=== PATIENT | male | born 1970 | race American Indian/Alaskan Native ===

== ENCOUNTER 2019-09-25 11:03 | Emergency (ER) | payer BC ==
[2019-09-25] MEDS ORDERED: ASPIRIN 325 MG TAB PO ONE (11:53)
--- NOTE | 2019-09-25 11:54 | Event Note ---
ED Screening Note Date of service: 09/25/19 Time: 11:51 ED Screening Note: This is a 48 y.o. M. that presents to the ER with chest pain for 2 days. Reports pain on left side of chest, dull, constant, and worse with movement. PM of [facility] PCP Dr. Nichole This initial assessment/diagnostic orders/clinical plan/treatment(s) is/are subject to change based on patients health status, clinical progression and re- assessment by fellow clinical providers in the ED. Further treatment and workup at subsequent clinical providers discretion. Patient/guardian urged not to elope from the ED as their condition may be serious if not clinically assessed and managed. Initial orders include: Labs, ekg, & CXR
--- NOTE | 2019-09-25 12:14 | XRay Report ---
CHEST 1 VIEW 09/25/2019 11:53 AM INDICATION / CLINICAL INFORMATION: Chest Pain. COMPARISON: None available. FINDINGS: SUPPORT DEVICES: None. HEART / MEDIASTINUM: No significant abnormality. LUNGS / PLEURA: No significant pulmonary or pleural abnormality. No pneumothorax. ADDITIONAL FINDINGS: No significant additional findings. IMPRESSION: 1. No acute findings. Signer Name: Terrance Malone MD Signed: 09/25/2019 12:09 PM Workstation Name: [id number]
[2019-09-25 13:18] LABS: BUN/Creatinine Ratio 10; Blood Urea Nitrogen 9 mg/dL (9-20); Calcium 9.2 mg/dL (8.4-10.2); Hemolysis Index 54
--- NOTE | 2019-09-25 13:21 | Emergency Department Report ---
ED Chest Pain HPI - General Chief Complaint: Chest Pain Stated Complaint: CHEST PAIN Time Seen by Provider: 09/25/19 11:51 Source: patient Mode of arrival: Ambulatory Limitations: No Limitations - History of Present Illness Initial Comments: Patient is a 48-year-old male presents emergency room with complaints of left- sided chest pain that began 2 days ago. He describes the pain as an intermittent aching sensation. He states the pain is worse with movement. He states that his pain has improved over the last couple days. He states that 3 days ago he was doing heavy lifting and increased his weights. Denies any nausea, vomiting, fever, shortness of breath, leg swelling. He states his only past medical history is hyperlipidemia. He denies any allergies medications. He denies any cardiac history or family cardiac history. Severity scale (0 -10): 4 - Related Data Previous Rx's Medication Instructions Recorded Last Taken Type Cyclobenzaprine [Flexeril] 10 mg PO QHS PRN #10 tablet 09/25/19 Unknown Rx Naproxen [EC-Naproxen] 500 mg PO BID PRN #14 tablet. 09/25/19 Unknown Rx Allergies Allergy/AdvReac Type Severity Reaction Status Date / Time No Known Allergies Allergy Unverified 09/25/19 11:12 Heart Score - HEART Score History: Slightly suspicious EKG: Normal Age: 45-65 Risk factors: 1-2 risk factors Troponin: < normal limit HEART Score: 2 ED Review of Systems ROS: Stated complaint: CHEST PAIN Other details as noted in HPI Comment: All other systems reviewed and negative ED Past Medical Hx - Past Medical History Previous Medical History?: Yes Additional medical history: High cholesterol - Surgical History Past Surgical History?: No - Social History Smoking Status: Never Smoker Substance Use Type: None - Medications Home Medications: Home Medications Medication Instructions Recorded Confirmed Last Taken Type Cyclobenzaprine [Flexeril] 10 mg PO QHS PRN #10 tablet 09/25/19 Unknown Rx Naproxen [EC-Naproxen] 500 mg PO BID PRN #14 tablet. 09/25/19 Unknown Rx ED Physical Exam - General Limitations: No Limitations General appearance: alert, in no apparent distress - Head Head exam: Present: atraumatic, normocephalic - Eye Eye exam: Present: normal appearance - ENT ENT exam: Present: mucous membranes moist - Respiratory Respiratory exam: Present: normal lung sounds bilaterally, other (states he has chest wall discomfort with extending and flexing the chest). Absent: respiratory distress, wheezes, rales, rhonchi, stridor, chest wall tenderness, a ccessory muscle use, decreased breath sounds, prolonged expiratory - Cardiovascular Cardiovascular Exam: Present: regular rate, normal rhythm, normal heart sounds. Absent: systolic murmur, diastolic murmur, rubs, gallop - GI/Abdominal GI/Abdominal exam: Present: soft, normal bowel sounds. Absent: distended, tenderness, guarding, rebound, rigid - Extremities Exam Extremities exam: Absent: pedal edema - Neurological Exam Neurological exam: Present: alert, oriented X3 - Psychiatric Psychiatric exam: Present: normal affect, normal mood - Skin Skin exam: Present: warm, dry, intact ED Course Vital Signs 09/25/19 09/25/19 09/25/19 11:41 12:44 15:00 Temperature 98.3 F Pulse Rate 61 75 58 L Respiratory 18 14 15 Rate Blood Pressure 125/74 Blood Pressure 122/79 133/80 [Left] O2 Sat by Pulse 100 100 100 Oximetry 09/25/19 16:02 Temperature Pulse Rate 64 Respiratory 15 Rate Blood Pressure Blood Pressure 130/78 [Left] O2 Sat by Pulse 100 Oximetry BRITTANY score - Brittany Score Age > 65: (0) No Aspirin use within the Past 7 Days: (0) No 3 or more CAD Risk Factors: (0) No 2 or more Angina events in past 24 hrs: (0) No Known CAD with more than 50% Stenosis: (0) No Elevated Cardiac Markers: (0) No ST Deviation Greater than 0.5mm: (0) No BRITTANY Score: 0 ED Medical Decision Making - Lab Data Result diagrams: 09/25/19 12:34 09/25/19 12:34 Lab Results 09/25/19 09/25/19 09/25/19 Range/Units 12:34 12:34 15:04 WBC 4.0 L (4.5-11.0) K/mm3 RBC 4.86 (3.65-5.03) M/mm3 Hgb 13.8 (11.8-15.2) gm/dl Hct 41.3 (35.5-45.6) % MCV 85 (84-94) fl MCH 28 (28-32) pg MCHC 33 (32-34) % RDW 13.4 (13.2-15.2) % Plt Count 172 (140-440) K/mm3 Lymph % (Auto) 47.6 H (13.4-35.0) % Wetzel % (Auto) 10.4 H (0.0-7.3) % Eos % (Auto) 4.0 (0.0-4.3) % Baso % (Auto) 1.0 (0.0-1.8) % Lymph # 1.9 (1.2-5.4) K/mm3 Wetzel # 0.4 (0.0-0.8) K/mm3 Eos # 0.2 (0.0-0.4) K/mm3 Baso # 0.0 (0.0-0.1) K/mm3 Seg Neutrophils % 37.0 L (40.0-70.0) % Seg Neutrophils # 1.5 L (1.8-7.7) K/mm3 Sodium 141 (137-145) mmol/L Potassium 4.2 (3.6-5.0) mmol/L Chloride 103.7 (98-107) mmol/L Carbon Dioxide 23 (22-30) mmol/L Anion Gap 19 mmol/L BUN 9 (9-20) mg/dL Creatinine 0.9 (0.8-1.5) mg/dL Estimated GFR > 60 ml/min BUN/Creatinine Ratio 10 % Glucose 95 (75-100) mg/dL Calcium 9.2 (8.4-10.2) mg/dL Troponin T < 0.010 < 0.010 (0.00-0.029) ng/mL - EKG Data EKG shows normal: sinus rhythm, axis, intervals, QRS complexes, ST-T waves Rate: normal - EKG Data 09/25/19 17:46 LAE - Radiology Data Radiology results: report reviewed CHEST 1 VIEW 09/25/2019 11:53 AM INDICATION / CLINICAL INFORMATION: Chest Pain. COMPARISON: None available. FINDINGS: SUPPORT DEVICES: None. HEART / MEDIASTINUM: No significant abnormality. LUNGS / PLEURA: No significant pulmonary or pleural abnormality. No pneumothorax. ADDITIONAL FINDINGS: No significant additional findings. IMPRESSION: 1. No acute findings. Signer Name: Terrance Malone MD Signed: 09/25/2019 12:09 PM Workstation Name: [id number] Transcribed By: VERONIQUE Dictated By: Terrance Malone MD Electronically Authenticated By: Terrance Malone MD Signed Date/Time: 09/25/191208 DD/ 08 TD/TT: - Medical Decision Making Patient is a 48-year-old male presents emergency room with complaints of left-sided chest pain that began 2 days ago. He describes the pain as an intermittent aching sensation. He states the pain is worse with movement. He states that his pain has improved over the last couple days. He states that 3 days ago he was doing heavy lifting and increased his weights. Denies any na usea, vomiting, fever, shortness of breath, leg swelling. He states his only past medical history is hyperlipidemia. He denies any allergies medications. He denies any cardiac history or family cardiac history. vitals are normal. on exam: states he has chest wall discomfort with extending and flexing the chest. pt given toradol and aching improved. EKG is stable. labs are stable. troponin is negative x2. CXR with no acute process. Patient is presenting with atypical chest pain. BRITTANY and heart score are low risk for cardiac event. PERC criteria negative for PE. Patients face sheet was faxed to [place] for close cardiology follow up as heart score is equal to 2. Patient given prescription for anti- inflammatory and muscle relaxer. advised pt to please take medication as prescribed as needed. Do not drive or operate heavy machinery while taking muscle relaxer. Please follow-up with a termite control servicer the next 2-3 days. Return to the emergency room for any new or worsening symptoms. - Differential Diagnosis ACS, PE, musculoskeletal, PUD, GERD, PTX, muscle strain Critical care attestation.: If time is entered above; I have spent that time in minutes in the direct care of this critically ill patient, excluding procedure time. ED Disposition Clinical Impression: Atypical chest pain Disposition: DC-01 TO HOME OR SELFCARE Is pt being admited?: No Does the pt Need Aspirin: No Condition: Stable Instructions: Chest Pain (ED) Additional Instructions: Please take medication as prescribed as needed. Do not drive or operate heavy machinery while taking muscle relaxer. Please follow-up with a termite control servicer the next 2-3 days. Return to the emergency room for any new or worsening symptoms. Prescriptions: Cyclobenzaprine [Flexeril] 10 mg PO QHS PRN #10 tablet PRN Reason: Muscle Spasm Naproxen [EC-Naproxen] 500 mg PO BID PRN #14 tablet. PRN Reason: pain Referrals: [facility] [Provider Group] - 2-3 Days Time of Disposition: 15:58 Print Language: SAMI
[2019-09-25 13:31] LABS: Eosinophils # (Auto) 0.2 K/mm3 (0.0-0.4); Hematocrit 41.3 % (35.5-45.6); Hemoglobin 13.8 gm/dl (11.8-15.2); Lymphocytes # (Auto) 1.9 K/mm3 (1.2-5.4); Lymphocytes % (Auto) 47.6 % (13.4-35.0); Mean Corpuscular HGB Conc 33 % (32-34); Mean Corpuscular Volume 85 fl (84-94); Monocytes # (Auto) 0.4 K/mm3 (0.0-0.8); Monocytes % (Auto) 10.4 % (0.0-7.3); Platelet Count 172 K/mm3 (140-440); Red Blood Count 4.86 M/mm3 (3.65-5.03); Red Cell Distribution Width 13.4 % (13.2-15.2)
[2019-09-25] MEDS ORDERED: KETOROLAC 30 MG/1 ML INJ IV ONE (13:36)
[2019-09-25 16:05] VITALS: BP 130/78
== END 2019-09-25 16:42 | disposition home or self-care (01) ==
LOC: ED 11:03
DX: R07.89 Other chest pain (principal); E78.5 Hyperlipidemia, unspecified; Z79.899 Other long term (current) drug therapy
CPT/HCPCS: 36415; 71045; 80048; 84484; 85025; 93005; 93010; 96374; 99284; J1885